=== PATIENT | male | born 1990 | race Caucasian/White ===

== ENCOUNTER 2016-12-26 15:21 | Emergency (ER) | payer OTHER ==
[2016-12-26 15:29] VITALS: BP 135/64
[2016-12-26] MEDS ORDERED: LIDOCAINE 1% 2 ML VIAL ONE (16:42)
[2016-12-26] MEDS ORDERED: BACITRACIN OINT TOP STA (17:11)
--- NOTE | 2016-12-26 17:13 | ED Physician Documentation ---
PD HPI UPPER EXT INJURY - Stated complaint Stated Complaint: R FINGER LAC - Chief complaint Chief Complaint: Ext Problem - History obtained from History obtained from: Patient - History of Present Illness Location: Right, Finger (middle) Where injury occurred: Work Timing - onset: Yesterday Associated symptoms: No: Weakness, Numbness - Additonal information Additional information: The patient is a 26-year-old right-hand dominant male who presents with injury to his right middle finger. He caught it in an elevator while at work yesterday. He denies any other injuries. His tetanus status is up-to-date. Review of Systems Constitutional: denies: Fever Musculoskeletal: reports: Extremity pain (Right middle finger.) Neurologic: denies: Focal weakness, Numbness PD PAST MEDICAL HISTORY - Past Medical History Past Medical History: No - Past Surgical History Past Surgical History: Yes HEENT: Tonsil/Adenoidectomy - Present Medications Home Medications: Ambulatory Orders Medication Instructions Recorded Confirmed No Known Home Medications [No 05/25/15 12/26/16 Known Home Medications] - Allergies Allergies/Adverse Reactions: Allergies Allergy/AdvReac Type Severity Reaction Status Date / Time No Known Drug Allergies Allergy Verified 12/26/16 16:14 - Social History Does the pt smoke?: No Smoking Status: Never smoker Does the pt have substance abuse?: No - Immunizations Immunizations are current?: Yes PD ED PE NORMAL - Vitals Vital signs reviewed: Yes (borderline hypertension initially.) - General General: Alert and oriented X 3, Well developed/nourished - HEENT HEENT: Atraumatic - Respiratory Respiratory: No respiratory distress - Derm Derm: No rash - Extremities Extremities: Other (There is a 1.5 cm laceration across the palmar aspect of the right middle finger at the distal phalanx. There is associated ecchymosis, as well as a deep abrasion on the ulnar aspect of the distal finger near the DIP joint. He has full flexion and extension at the DIP, PIP, and MCP joints against resistance. Distal neurovascular is intact.) - Neuro Neuro: Alert and oriented X 3, No motor deficit, No sensory deficit Results - Vitals Vitals: Oxygen O2 Source Room air Procedures - Laceration (location) Right middle finger Length in cm: 1.5 Wound type: Curved Neurovascular status: Sensory intact, Motor intact, Vascular intact Tendon involvement: Tendon intact Anesthesia: Lidocaine 1% Wound Preparation: Hibiclens, Irrigated copiously NS, Wound explored, To the base. No: FB identified Skin layer closure: Nylon, Interrupted, Size #-0 - enter number (5), Sutures - enter # (5) Other: Patient tolerated well, No complications, Neurovascular intact, Dressing applied, Tetanus UTD Complexity: Simple PD MEDICAL DECISION MAKING - ED course Complexity details: considered differential, d/w patient, other (L&I form was completed.) ED course: The patient's presentation is significant for laceration to the right middle finger caused by a crush injury while at work. Treatment in the emergency department included suture repair of the wound after local anesthetic and thorough cleaning. 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 Departure - Departure Disposition: 01 Home, Self Care Clinical Impression: Finger laceration Qualifiers: Encounter type: initial encounter Finger: middle finger Damage to nail status: unspecified Foreign body presence: without foreign body Laterality: right Qualified Code(s): S61.212A - Laceration without foreign body of right middle finger without damage to nail, initial encounter Condition: Stable Instructions: ED Laceration Hand Comments: Keep the wound clean, and apply antibiotic ointment daily. You can use Tylenol or ibuprofen if needed for discomfort. Follow-up for suture removal in about 10 days. Return to the emergency department if you develop any sign of infection, or otherwise worsening symptoms. Discharge Date/Time: 12/26/16 17:18
== END 2016-12-26 17:18 | disposition home or self-care (01) ==
LOC: ED 15:21
DX: S61.212A Laceration without foreign body of right middle finger without damage to nail, initial encounter (principal); W23.0XXA Caught, crushed, jammed, or pinched between moving objects, initial encounter; Y99.0 Civilian activity done for income or pay
CPT/HCPCS: 1040M; 12001; 99282; 99283